=== PATIENT | female | born 2000 | race Asian ===

== ENCOUNTER 2023-06-17 09:18 | Outpatient (CLI) | payer MEDICAID | END 2023-06-17 23:59 | disposition home or self-care (01) | LOC: RAD 09:18 | PROVIDERS: ATTEND Obstetrics & Gynecology | DX: O09.93 Supervision of high risk pregnancy, unspecified, third trimester (principal); Z3A.36 36 weeks gestation of pregnancy | CPT/HCPCS: 76805 ==